=== PATIENT | female | born 1970 | race Caucasian/White ===

== ENCOUNTER 2021-10-11 18:01 | Emergency (ER) | payer MEDICAID ==
[~2021-10-11] VITALS: Ht 152.4 cm; Wt 106.9 kg
[2021-10-11] MEDS ORDERED: CYM20 PO (18:13)
[2021-10-11] MEDS ORDERED: GABA800T PO (18:13)
[2021-10-11] MEDS ORDERED: GABA-532 PO (18:13)
[2021-10-11] MEDS ORDERED: VITAMIN D (18:13)
[2021-10-11 18:23] VITALS: BP 134/66
[2021-10-11 19:28] LABS: BASOPHILS % 0.8 % (0.0-2.0); EOSINOPHILS % 5.1 % (0.0-5.0); HEMATOCRIT. 43.3 % (36.0-48.0); HEMOGLOBIN. 14.4 g/dL (12.0-16.0); LYMPHOCYTES % 25.1 % (20.0-50.0); MEAN PLATELET VOLUME 9.6 fl (7.4-10.4); MONOCYTES % 7.7 % (2.0-8.0); NEUTROPHILS % 61.3 % (40.0-76.0); PLATELET 236 x1000/uL (130-400); RED BLOOD CELL COUNT 4.98 mill/uL (4.2-5.4)
[2021-10-11 19:38] LABS: CHLORIDE 108 mEq/L (98-107)
[2021-10-11] MEDS ORDERED: ACETAMINOPHEN 325MG TABLET PO ONE (19:45)
== END 2021-10-11 21:03 | disposition home or self-care (01) ==
LOC: ER 18:01
DX: M79.2 Neuralgia and neuritis, unspecified (principal); I44.39 Other atrioventricular block; I69.354 Hemiplegia and hemiparesis following cerebral infarction affecting left non-dominant side; Z90.49 Acquired absence of other specified parts of digestive tract; Z98.890 Other specified postprocedural states
CPT/HCPCS: 36415; 71045; 80053; 82962; 83880; 85025; 93005; 99285

== ENCOUNTER 2022-01-08 17:45 | Emergency (ER) | payer MEDICAID ==
[~2022-01-08] VITALS: Ht 157.5 cm; Wt 101.0 kg
[~2022-01-08 17:45] MED LIST: CYM20 PO; GABA-532 PO; GABA800T PO; VITAMIN D
[2022-01-08 17:48] VITALS: BP 147/84
== END 2022-01-08 21:42 | disposition left against medical advice (07) ==
LOC: ER 17:45
DX: Z53.21 Procedure and treatment not carried out due to patient leaving prior to being seen by health care provider (principal); Z86.73 Personal history of transient ischemic attack (TIA), and cerebral infarction without residual deficits; Z90.49 Acquired absence of other specified parts of digestive tract

== ENCOUNTER 2022-08-11 14:00 | Emergency (ER) | payer MEDICAID ==
[~2022-08-11] VITALS: Ht 157.5 cm; Wt 86.0 kg
[2022-08-11] MEDS ORDERED: ACETAMINOPHEN 325MG TABLET PO ONE (17:45)
[2022-08-11] MEDS ORDERED: KETOROLAC 60MG/2ML VIAL IM ONE (17:45)
[2022-08-11] MEDS ORDERED: IBUP-2028 MT (17:48)
[2022-08-11] MEDS ORDERED: TOPUD PO (17:48)
[2022-08-11 18:17] VITALS: BP 130/82
== END 2022-08-11 18:21 | disposition home or self-care (01) ==
LOC: ER 14:29
DX: R51.9 Headache, unspecified (principal); Z98.890 Other specified postprocedural states; Z90.49 Acquired absence of other specified parts of digestive tract; Z86.73 Personal history of transient ischemic attack (TIA), and cerebral infarction without residual deficits
CPT/HCPCS: 70450; 96372; 99285; J1885; Z7610